=== PATIENT | male | born 1940 | race African-American/Black ===

== ENCOUNTER 2018-05-28 05:50 | Emergency (ER) | payer MEDICARE ==
[~2018-05-28] VITALS: Ht 188 cm; Wt 113.4 kg
[2018-05-28] MEDS ORDERED: KETOROLAC TROMETH 60MG/2ML VIAL IM ONE (08:15)
[2018-05-28] MEDS ORDERED: DEXAMETHASONE SOD PHOS 10MG/1ML VIAL INJ IM ONE (08:15)
[2018-05-28 08:17] VITALS: BP 129/88
== END 2018-05-28 08:39 | disposition home or self-care (01) ==
LOC: ER 05:52
DX: S20.212A Contusion of left front wall of thorax, initial encounter (principal); X58.XXXA Exposure to other specified factors, initial encounter; Y93.89 Activity, other specified; Y92.89 Other specified places as the place of occurrence of the external cause; Y99.8 Other external cause status
CPT/HCPCS: 71045; 96372; 99284; J1100; J1885

== ENCOUNTER 2023-11-05 15:27 | Emergency (ER) | payer MEDICARE, OTHER ==
[~2023-11-05] VITALS: Ht 188 cm; Wt 112.2 kg
[2023-11-05 16:28] VITALS: BP 158/105; PULSE 89; RESP 16; TEMP 98.1; O2SAT 96
[2023-11-05] MEDS: cefTRIAXone SOD 1,000 MG VL IM ONE (16:57)
[2023-11-05] MEDS ORDERED: AZIT500T66 PO (17:17)
[2023-11-05] MEDS ORDERED: PROM1SOL4 PO (17:17)
== END 2023-11-05 17:25 | disposition home or self-care (01) ==
LOC: ER 15:27
DX: J20.9 Acute bronchitis, unspecified (principal); J03.90 Acute tonsillitis, unspecified; E78.5 Hyperlipidemia, unspecified; R07.89 Other chest pain
CPT/HCPCS: 71046; 96372; 99283; J0696

== ENCOUNTER 2024-07-15 09:45 | Emergency (ER) | payer OTHER ==
[~2024-07-15] VITALS: Ht 188 cm; Wt 116.0 kg
[~2024-07-15 09:45] MED LIST: ALBU108A5 IN; AZIT500T66 PO; BENZ200C64 PO; PRED20TA2 PO; PROM1SOL4 PO
--- NOTE | 2024-07-15 10:39 | ED.PDOC ---
Musculoskeletal HPI Comments A 83 YEAR OLD MALE PRESENTS TO THE ED WITH COMPLAINT OF RIGHT LOWER LEG SWELLING. PATIENT STATES HE HAS BEEN EXPERIENCING RIGHT LOWER LEG AND ANKLE REDNESS AND SWELLING FOR THE 3 WEEKS. PATIENT WOULD LIKE TO MAKE SURE HE DOES NOT HAVE A BLOOD CLOT. PATIENT DENIES FEVER, CHILLS, SHORTNESS OF BREATH, CHEST PAIN, ABDOMINAL PAIN, NAUSEA, VOMITING, OR OTHER COMPLAINTS. NO OTHER SYMPTOMS OR MODIFYING FACTORS AT THIS TIME. PATIENT IS ALERT, ORIENTED X 4, AND HAS STEADY GAIT. Chief Complaint: Lower Extremity Time Seen by MD: 10:12 Primary Care Provider: DR NICOLE Reviewed Notes: Nurses Notes, Medications, Allergies Allergies: Coded Allergies: NO KNOWN ALLERGIES (Unverified , 05/28/18) Home Meds Active Scripts Prednisone (Prednisone) 20 Mg Tab, 60 MG PO DAILY, #15 MG Prov:JB BLACKWOOD 11/14/23 Albuterol Sulfate (Albuterol Sulfate Hfa) 108 Mcg/Act Aer, 108 MCG IN TID, #90 AER Prov:JB BLACKWOOD 11/14/23 Benzonatate (Benzonatate) 200 Mg Cap, 1 CAP PO TID, #30 CAP Prov:JB BLACKWOOD 11/14/23 Promethazine-Dm (Promethazine Dm 6.25-15 mg/5Ml) 1 Bernice Bernice, 5 ML PO TID, #180 ML Prov:JB BLACKWOOD 11/05/23 Azithromycin (Azithromycin) 500 Mg Tab, 1 TAB PO DAILY, #5 TAB Prov:JB BLACKWOOD 11/05/23 Information Source: Patient Mode of Arrival: Ambulatory Location: Right Extremity Location: Ankle, Leg Timing: Weeks Prehospital treatment: None Severity: Moderate Able to Move Extremity: Yes Bear Weight: Fully Pain: Moderate Mechanism: No Trauma, Spontaneous Circumstances: Spontaneous Onset of Symptoms: Spontaneous Symptoms: Swelling, Pain, Erythema DVT Risk Factors: NONE Associated signs and symptoms: Swelling, Ankle pain, Leg pain Past Medical History PAST MEDICAL HISTORY: High Lipids Surgical History (Other): BILATERAL KNEE REPLACEMENT Family History Family History: Reviewed,noncontributory to illness Social History Smoker: Non-Smoker Alcohol: Denies ETOH Use Drugs: Denies Drug Use Lives In: Home Constitutional: denies: chills, diaphoresis, fatigue, fever, malaise, sweats, weakness, others EENTM: denies: blurred vision, double vision, ear bleeding, ear discharge, ear drainage, ear pain, ear ringing, eye pain, eye redness, hearing loss, mouth pain, mouth swelling, nasal discharge, nose bleeding, nose congestion, nose pain, photophobia, tearing, throat pain, throat swelling, voice changes, others Respiratory: denies: cough, hemoptysis, orthopnea, SOB at rest, shortness of breath, SOB with excertion, stridor, wheezing, others Cardiovascular: denies: chest pain, dizzy spells, diaphoresis, Dyspnea on exertion, edema, irregular heart beat, left arm pain, lightheadedness, palpitations, PND, syncope, others Gastrointestinal: denies: abdomen distended, abdominal pain, blood streaked bowels, constipated, diarrhea, dysphagia, difficulty swallowing, hematemesis, melena, nausea, poor appetite, poor fluid intake, rectal bleeding, rectal pain, vomiting, others Genitourinary: denies: burning, dysuria, flank pain, frequency, hematuria, incontinence, penile discharge, penile sore, pain, testicle pain, testicle swelling, urgency, others Neurological: denies: dizziness, fainting, headache, left sided numbness, left sided weakness, numbness, paresthesia, pre-existing deficit, right sided numbness, right sided weakness, seizure, speech problems, tingling, tremors, weakness, others Musculoskeletal: reports: joint swelling, others (RIGHT LOWER LEG PAIN AND SWELLING); denies: back pain, gout, joint pain, muscle pain, muscle stiffness, neck pain Integumetry: denies: bruises, change in color, change in hair/nails, dryness, laceration, lesions, lumps, rash, wounds, others Allergic/Immunocompromised: denies: Difficulty Healing, Frequent Infections, Hives, Itching, others Hematologic/Lymphatic: denies: anemia, blood clots, easy bleeding, easy bruising, swollen glands, others Endocrine: denies: excessive hunger, excessive sweating, excessive thirst, excessive urination, flushing, intolerance to cold, intolerance to heat, unexplained weight gain, unexplained weight loss, others Psychiatric: denies: anxiety, bipolar disorder, depression, hopeless, panic disorder, schizophrenia, sleepless, suicidal, others All Other Systems: Reviewed and Negative Physical Exam General Appearance: No Apparent Distress, Normal HEENT: Normal ENT Inspection, PERRL/EOMI, Pharynx Normal, TMs Normal Neck: Full Range of Motion, Non-Tender, Normal, Normal Inspection Respiratory: Chest Non-Tender, Lungs Clear, No Accessory Muscle Use, No Respiratory Distress, Normal Breath Sounds Cardiovascular: No Edema, No JVD, No Murmur, No Gallop, Normal Peripheral Pulses, Regular Rate/Rhythm Breast Exam: Deferred Gastrointestinal: No Organomegaly, Non Tender, No Pulsatile Mass, Normal Bowel Sounds, Soft Genitalia: Deferred Pelvic: Deferred Rectal: Deferred Extremities: No calf tenderness, Normal capillary refill, No pedal edema, Swe lling (MILD REDNESS AND SWELLING ON RIGHT LOWER LEG, NO OPEN WOUND SEEN, NO DVT SIGNS. ), Tender (WITH MILD REDNESS AND SWELLING ON RIGHT ANKLE, NO INFECTION SIGNS. 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 Was a procedure done?: No Differential Diagnosis EXT Differential Diagnosis: Cellulitis, Deep Vein Thrombosis, Sprain, Gout, DJD, Strain Other Differential Diagnosis SUPERFICIAL THROMBOSIS, ERYSIPELAS X-Ray, Labs, Meds, VS Vital Signs Date Time Temp Pulse Resp B/P (MAP) Pulse Ox O2 Delivery O2 Flow Rate FiO2 07/15/24 10:08 97.9 60 18 142/99 (113) 97 Clinical History: RIGHT LOWER LEG REDNESS AND SWELLING Comparison: None Technique: Duplex Doppler evaluation of the deep venous system of the right lower extremity from the common femoral vein to the popliteal vein including color Doppler and spectral/pulsed waveform analysis was performed. Findings: The common femoral vein demonstrates appropriate compressibility and waveform variability. There is compressibility/patency of the great saphenous vein at the proximal thigh. The femoral vein demonstrates appropriate compressibility and waveform variability. The deep femoral vein demonstrates appropriate compressibility and waveform variability. The popliteal vein demonstrates appropriate compressibility and waveform variability. There is color flow in the tibioperoneal trunk and posterior tibial vein. A benign-appearing reactive lymph node is seen in the femoral canal measuring 2 x 0.8 cm. Impression: 1. No deep venous thrombosis. If clinical concern/symptoms persist or worsen, short-interval follow-up study is suggested. ATED BY: WENDIE STEPHENSON MD DICTATED DATE/TIME: 07/15/241107 SIGNED BY: WENDIE STEPHENSON MD SIGNED DATE/TIME: 07/15/241107 CC: Images Reviewed?: Images reviewed and evaluated by me Time of 1ST Reevaluation: 11:30 Reevaluation 1ST: Improved Patient Education/Counseling: Diagnosis, Treatment, Need For Follow Up Family Education/Counseling: Diagnosis, Treatment, Need For Follow Up Medical Screening: No EMC Exist At This Time Departure 1 Departure Time of Disposition: 11:30 Impression: Primary Impression: Edema of right ankle Disposition: 01 HOME / SELF CARE / HOMELESS Condition: Stable Additional Instructions: FOLLOW-UP WITH PCP IN 1 TO 2 DAYS. RETURN TO ED FOR ANY NEW OR WORSENING SYMPTOMS. Discharged With: Self Critical Care Note Critical Care Time?: No Stability Stability form required: No I personally scribed for JB BLACKWOOD ([email or web address]) on 07/15/24 at 10:39. Electronically submitted by Jose Dee (EMA). I personally scribed for JB BLACKWOOD ([email or web address]) on 07/15/24 at 11:17. Electronically submitted by Jose Dee (EMA). JB BLACKWOOD Jul 15, 2024 10:39
--- NOTE | 2024-07-15 11:10 | DVH ---
Clinical History: RIGHT LOWER LEG REDNESS AND SWELLING Comparison: None Technique: Duplex Doppler evaluation of the deep venous system of the right lower extremity from the common fem oral vein to the popliteal vein including color Doppler and spectral/pulsed waveform analysis was per formed. Findings: The common femoral vein demonstrates appropriate compressibility and waveform variability. There is compressibility/patency of the great saphenous vein at the proximal thigh. The femoral vein demonstrates appropriate compressibility and waveform variability. The deep femoral vein demonstrates appropriate compressibility and waveform variability. The popliteal vein demonstrates appropriate compressibility and waveform variability. There is color flow in the tibioperoneal trunk and posterior tibial vein. A benign-appearing reactive lymph node is seen in the femoral canal measuring 2 x 0.8 cm. Impression: 1. No deep venous thrombosis. If clinical concern/symptoms persist or worsen, short-interval follow- up study is suggested.
[2024-07-15 11:16] VITALS: BP 142/99; PULSE 60; RESP 18; TEMP 97.9; O2SAT 97
== END 2024-07-15 11:21 | disposition home or self-care (01) ==
LOC: ER 09:45
DX: R60.0 Localized edema (principal); E78.5 Hyperlipidemia, unspecified; Z96.653 Presence of artificial knee joint, bilateral; Z79.52 Long term (current) use of systemic steroids; Z79.899 Other long term (current) drug therapy
CPT/HCPCS: 93971